=== PATIENT | female | born 1935 | race Caucasian/White ===

== ENCOUNTER 2021-08-19 14:16 | Outpatient (CLI) | payer MEDICARE, SELFPAY ==
--- NOTE | ~2021-08-19 | XR_ITS ---
XR shoulder RT min 2V DATE: 08/19/2021 15:26 INDICATION: Bilateral shoulder pain, right shoulder mass TECHNIQUE: 5 views COMPARISON: None FINDINGS: There is diffuse osteopenia. There is severe degenerative disc disease at the included C5-6 and C6-7 levels. There is prominent degenerative spurring at the right acromioclavicular joint. There is severe osteoarthritis of the right glenohumeral joint and prominent rotator cuff atrophy, wi th the humeral head abutting the undersurface of the acromion process. No fracture or dislocation, periosteal reaction or bone destruction is detected. IMPRESSION: Osteopenia Severe degenerative disc disease at C5-6 and C6-7 Severe degenerative changes of the right acromioclavicular and glenohumeral joints Prominent chronic right rotator cuff atrophy Reviewed, dictated and finalized at location A. IMPRESSION: Osteopenia Severe degenerative disc disease at C5-6 and C6-7 Severe degenerative changes of the right acromioclavicular and glenohumeral nydia nts Prominent chronic right rotator cuff atrophy
--- NOTE | ~2021-08-19 | XR_ITS ---
XR shoulder LT min 2V DATE: 08/19/2021 15:27 INDICATION: Bilateral shoulder pain TECHNIQUE: 5 views of left shoulder COMPARISON: None FINDINGS: There is prominent degenerative spurring at the left acromion clavicular joint. There is severe osteoarthritic change at the glenohumeral joint. There is chronic severe left rotator cuff atrophy. There is diffuse osteopenia otherwise. No fracture, dislocation, periosteal reaction or bone destruction or abnormal soft tissue calcificati on is detected. Severe degenerative disc disease at C5-6 and C6-7. Degenerative spurring of the thoracic spine. IMPRESSION: Severe degenerative changes at the acromioclavicular and glenohumeral joints Severe chronic rotator cuff atrophy Diffuse osteopenia Severe degenerative disc disease at C5-6 and C6-7 Reviewed, dictated and finalized at location A. IMPRESSION: Severe degenerative changes at the acromioclavicular and glenohumer al joints Severe chronic rotator cuff atrophy Diffuse osteopenia Severe degenerative disc disease at C5-6 and C6-7
--- NOTE | ~2021-08-19 | XR_ITS ---
XR thoracic spine 3V DATE: 08/19/2021 15:27 INDICATION: T11 fracture follow-up TECHNIQUE: AP, lateral, swimmer views COMPARISON: None FINDINGS: Diffuse osteopenia. There is mild anterolisthesis at C3-4. There is moderate degenerative disc disease at C3-4 and C4-5 a nd severe degenerative disease at C5-6 and C6-7, with minimal retrolisthesis at the latter 2 levels. There is thoracolumbar dextroscoliosis. There is degenerative spurring, particularly in the mid and to a greater extent lower thoracic region . No thoracic spine fracture or dislocation or bone destruction is evident. The thoracic pedicles are i ntact. No paraspinal soft tissue thickening. IMPRESSION: Diffuse osteopenia Thoracolumbar dextro scoliosis Degenerative changes of the cervical and thoracic spine Reviewed, dictated and finalized at location A.
[2021-08-19 14:44] LABS: Basophils Absolute Auto 0.04 K/mm3 (0.00-0.10); Basophils Percent Auto 0.7 % (0.0-1.0); Eosinophils Absolute Auto 0.11 K/mm3 (0.02-0.50); Eosinophils Percent Auto 1.9 % (1.0-6.0); Hematocrit 39.6 % (35.0-42.0); Hemoglobin 13.2 g/dL (11.7-13.8); Immature Granulocyte Absolute 0.02 K/mm3 (0.00-0.00); Immature Granulocyte Percent A 0.4 % (0.0-0.0); Lymphocytes Absolute Auto 1.78 K/mm3 (1.10-4.50); Lymphocytes Percent Auto 31.3 % (18.0-42.0); Mean Corpuscular HGB Conc 33.3 g/dL (32.0-36.0); Mean Corpuscular Hemoglobin 33.4 pg (27.0-31.0); Mean Corpuscular Volume 100.3 fL (78.0-102.0); Monocytes Absolute Auto 0.62 K/mm3 (0.10-0.90); Monocytes Percent Auto 10.9 % (2.0-11.0); Neutrophils Absolute Auto 3.1 K/mm3 (1.7-7.2); Neutrophils Percent Auto 54.8 % (50.0-70.0); Platelet Count Result 213 K/mm3 (150-420); Red Blood Count 3.95 M/mm3 (4.20-5.40); Red Cell Distribution Width 13.1 % (11.6-14.4); White Blood Count 5.7 K/mm3 (4.8-10.8)
[2021-08-19 15:53] LABS: Alanine Aminotransferase 54 U/L (14-59); Albumin Level 4.5 g/dL (3.4-5.0); Alkaline Phosphatase 42 U/L (46-116); Anion Gap 11 mmol/L (8-16); Aspartate Amino Transferase 31 U/L (15-37); Bilirubin,Total 0.3 mg/dL (0.00-1.00); Blood Urea Nitrogen 18 mg/dL (7-18); CRP < 0.5 mg/dL (0.0-0.9); Carbon Dioxide 27 mmol/L (21-32); Chloride 104 mmol/L (98-108); Estimated Glomerular Filt Rate > 60; Glucose 98 mg/dL (70-99); Osmolality Calculated 295 mOsm/kg (285-295); Sodium 142 mmol/L (136-145); Total Protein 7.8 g/dL (6.4-8.2)
== END 2021-08-19 14:17 | disposition home or self-care (01) ==
PROVIDERS: PCP Internal Medicine; Visit Provider Internal Medicine
DX: M25.512 Pain in left shoulder (principal); M25.511 Pain in right shoulder; M85.80 Other specified disorders of bone density and structure, unspecified site; M50.322 Other cervical disc degeneration at C5-C6 level; M50.323 Other cervical disc degeneration at C6-C7 level
CPT/HCPCS: 36415; 72072; 73030; 80053; 85025; 86140

== ENCOUNTER 2021-09-27 16:01 | Outpatient (CLI) | payer MEDICARE, SELFPAY ==
[2021-09-27 16:18] LABS: Basophils Absolute Auto 0.02 K/mm3 (0.00-0.10); Basophils Percent Auto 0.5 % (0.0-1.0); Eosinophils Absolute Auto 0.11 K/mm3 (0.02-0.50); Eosinophils Percent Auto 2.5 % (1.0-6.0); Hematocrit 36.8 % (35.0-42.0); Hemoglobin 12.7 g/dL (11.7-13.8); Immature Granulocyte Absolute 0.02 K/mm3 (0.00-0.00); Immature Granulocyte Percent A 0.5 % (0.0-0.0); Lymphocytes Absolute Auto 1.37 K/mm3 (1.10-4.50); Lymphocytes Percent Auto 31.1 % (18.0-42.0); Mean Corpuscular HGB Conc 34.5 g/dL (32.0-36.0); Mean Corpuscular Hemoglobin 34.8 pg (27.0-31.0); Mean Corpuscular Volume 100.8 fL (78.0-102.0); Mean Platelet Volume 9.1 fl (9.2-11.8); Monocytes Absolute Auto 0.61 K/mm3 (0.10-0.90); Monocytes Percent Auto 13.8 % (2.0-11.0); Neutrophils Absolute Auto 2.3 K/mm3 (1.7-7.2); Neutrophils Percent Auto 51.6 % (50.0-70.0); Platelet Count Result 214 K/mm3 (150-420); Red Blood Count 3.65 M/mm3 (4.20-5.40); Red Cell Distribution Width 13.2 % (11.6-14.4); White Blood Count 4.4 K/mm3 (4.8-10.8)
[2021-09-27 16:19] LABS: Add Urine Microscopic? YES; Appearance Urine Clear (Clear); Bilirubin Urine Negative (Negative); Blood Urine Negative (Negative); Color Urine Light Yellow (Yellow); Glucose Urine UA Negative (Negative); Ketones Urine Trace (Negative); Leukocyte Esterase Ur Trace (Negative); Nitrate Urine Negative (Negative); Protein Urine Negative (Negative); Urobilinogen Urine 0.2 mg/dL (0.2-1.0); pH Urine 6.5 (5.0-8.0)
[2021-09-27 16:27] LABS: Bacteria Urine 1+ /hpf; RBC Urine None seen /hpf (0-2); Squamous Epithelial Cell Urine Few /hpf (Few); WBC Urine 0-3 /hpf (0-3)
[2021-09-27 16:49] LABS: Alanine Aminotransferase 49 U/L (14-59); Albumin Level 4.1 g/dL (3.4-5.0); Alkaline Phosphatase 44 U/L (46-116); Anion Gap 11 mmol/L (8-16); Aspartate Amino Transferase 26 U/L (15-37); Bilirubin,Total 0.3 mg/dL (0.00-1.00); Blood Urea Nitrogen 22 mg/dL (7-18); Calcium 9.9 mg/dL (8.5-10.1); Carbon Dioxide 28 mmol/L (21-32); Chloride 99 mmol/L (98-108); Estimated Glomerular Filt Rate > 60; Glucose 115 mg/dL (70-99); Osmolality Calculated 290 mOsm/kg (285-295); Potassium 4.6 mmol/L (3.5-5.1); Sodium 138 mmol/L (136-145); Total Protein 7.4 g/dL (6.4-8.2)
== END 2021-09-27 16:02 | disposition home or self-care (01) ==
LOC: CHSLAB 16:04
PROVIDERS: PCP Internal Medicine; Visit Provider Internal Medicine
DX: R10.32 Left lower quadrant pain (principal)
CPT/HCPCS: 36415; 80053; 81001; 85025; 87086; 87088

== ENCOUNTER 2021-10-07 14:21 | Outpatient (CLI) | payer MEDICARE, SELFPAY ==
[2021-10-07 14:53] LABS: Estimated Glomerular Filt Rate > 60
== END 2021-10-07 14:22 | disposition home or self-care (01) ==
PROVIDERS: PCP Internal Medicine; Visit Provider Internal Medicine
DX: R10.32 Left lower quadrant pain (principal)
CPT/HCPCS: 99199

== ENCOUNTER 2021-10-18 13:19 | Outpatient (CLI) | payer MEDICARE, SELFPAY ==
--- NOTE | ~2021-10-18 | CT_ITS ---
EXAMINATION: CT abdomen pelvis w con DATE: 10/18/2021 14:57 INDICATION: Left lower quadrant abdominal pain and swelling. Vaginal cancer status post radiation the rapy. TECHNIQUE: Computed tomography (CT) of the abdomen and pelvis was performed with 100 mL Omnipaque 350 intravenous contrast. Automated exposure control and iterative reconstruction technique were employe d. The dose-length product was 820.81 mGy-cm. COMPARISON: None. FINDINGS: The visualized portions of the lung bases demonstrate mild atelectasis and mild chronic jessi g disease. No pleural effusion. The heart size is normal. No pericardial effusion. The liver is melissa l. There are changes of cholecystectomy. The spleen, pancreas, adrenal glands, and right kidney are n ormal. There is a 3 mm cyst in left kidney. There is diverticulosis of the colon without evidence of diverticulitis. There are no dilated loops of bowel. The appendix is not visualized. There are no pat hologically enlarged lymph nodes. There is no free intraperitoneal fluid. There is a total right hip arthroplasty. There is severe lumbar spondylosis. IMPRESSION: 1. No etiology for the patient's symptoms. Reviewed, dictated and finalized at location A. [employer]
== END 2021-10-18 13:20 | disposition home or self-care (01) ==
PROVIDERS: PCP Internal Medicine; Visit Provider Internal Medicine
DX: R10.32 Left lower quadrant pain (principal); Z85.89 Personal history of malignant neoplasm of other organs and systems
CPT/HCPCS: 74177; Q9967

== ENCOUNTER 2022-03-14 12:14 | Outpatient (CLI) | payer MEDICARE, SELFPAY ==
--- NOTE | ~2022-03-14 | XR_ITS ---
XR chest 2V DATE: 03/14/2022 13:28 INDICATION: Preoperative evaluation. History of cervical cancer. TECHNIQUE: 2 views COMPARISON: None FINDINGS: Cardiomegaly. No pulmonary vascular congestion or pleural effusion or pneumothorax. No hilar or mediastinal enlarge ment is evident. Bilateral subcentimeter pulmonary nodules are noted. CT thorax is recommended in the absence of any p rior chest radiographs for comparison. 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 Osteoarthritic change at the glenohumeral joints and bilateral chronic rotator cuff atrophy. Diffuse osteopenia. Degenerative spurring of the thoracic and lumbar spine. Status post cholecystectomy. IMPRESSION: Bilateral subcentimeter pulmonary nodules; CT thorax is recommended unless prior radiogra phs are available for comparison Cardiac megaly Eventration of right diaphragm Reviewed, dictated and finalized at location A. IMPRESSION: Bilateral subcentimeter pulmonary nodules; CT thorax is recommended unless prior radiographs are available for comparison Cardiac megaly Eventration of right diaphragm
== END 2022-03-14 12:15 | disposition home or self-care (01) ==
LOC: CHSLAB 12:17 → CHSIMG 12:29
PROVIDERS: PCP Internal Medicine; Visit Provider Internal Medicine
DX: Z01.818 Encounter for other preprocedural examination (principal); N39.0 Urinary tract infection, site not specified
CPT/HCPCS: 71046

== ENCOUNTER 2022-03-18 12:46 | Outpatient (CLI) | payer MEDICARE, SELFPAY ==
[2022-03-18 13:13] LABS: Estimated Glomerular Filt Rate > 60
== END 2022-03-18 12:47 | disposition home or self-care (01) ==
LOC: CHSIMG 12:47
PROVIDERS: PCP Internal Medicine; Visit Provider Internal Medicine
DX: R91.1 Solitary pulmonary nodule (principal)
CPT/HCPCS: 99199

== ENCOUNTER 2022-03-21 15:57 | Outpatient (CLI) | payer MEDICARE, SELFPAY ==
--- NOTE | ~2022-03-21 | CT_ITS ---
EXAMINATION:CT diagnostic chest w con DATE: 03/21/2022 16:37 INDICATION: Pulmonary nodules. TECHNIQUE: Computed tomography (CT) of the chest was performed with 75 mL Omnipaque 350 intravenous c ontrast. Automated exposure control and iterative reconstruction technique were employed. The dose-le ngth product (DLP) was 465.15 mGy-cm. COMPARISON: CT abdomen and pelvis 10/18/2021, chest 2 views 03/14/22 FINDINGS: There is eventration of anterior right hemidiaphragm. There are calcified pleural plaques b ilaterally, which may be seen with asbestosis exposure. There are mild peripheral groundglass opaciti es and septal thickening in the lungs with a lower lung predominance, consistent with asbestosis. No bronchiectasis or honeycombing. No pleural effusion. The heart size is normal. No pericardial effusio n. There are changes of cholecystectomy. IMPRESSION: 1. Calcified pleural plaques correlating with the chest radiograph abnormalities, which may be seen w ith asbestosis exposure. 2. Mild chronic interstitial lung disease (asbestosis). Reviewed, dictated and finalized at location A. IMPRESSION: 1. Calcified pleural plaques correlating with the chest radiograph abnormalitie s, which may be seen with asbestosis exposure. 2. Mild chronic interstitial lung disease (asbestosis).
== END 2022-03-21 15:58 | disposition home or self-care (01) ==
LOC: CHSIMG 15:58
PROVIDERS: PCP Internal Medicine; Visit Provider Internal Medicine
DX: R91.1 Solitary pulmonary nodule (principal)
CPT/HCPCS: 71260; Q9967

== ENCOUNTER 2022-06-11 13:59 | Outpatient (CLI) | payer OTHER, MEDICARE, SELFPAY ==
--- NOTE | ~2022-06-11 | XR_ITS ---
XR_[id number]_CR 06/11/2022 14:27 Indication: Neck pain Procedure: 3 views of the cervical spine Comparison: No prior studies for comparison. Findings: There is reversal of cervical lordosis. There is degenerative anterolisthesis at C3-4, C4-5 and retrolisthesis at C5-6. There is severe multilevel uncinate and facet hypertrophy. No prevertebr al soft tissue swelling. Odontoid process is normal. Lung apices are unremarkable. No fracture or tra umatic malalignment. Impression: 1: Severe cervical spondylosis. Reviewed, dictated and finalized at location A. Impression: 1: Severe cervical spondylosis.
--- NOTE | ~2022-06-11 | XR_ITS ---
EXAM: XR lumbar spine 2-3V DATE: 06/11/2022 18:38 HISTORY: BACK PAIN . COMPARISON: None available. FINDINGS: 5 nonrib-bearing lumbar-type vertebral bodies. Pedicles intact. Mild lumbar scoliosis. Exa ggerated lumbar lordosis. Vertebral body heights maintained. CT abdomen pelvis 10/18/2021 3 mm retroli sthesis of L1 on L2. 3 mm anterolisthesis of L3 on L4. 5 mm anterolistheses at L4-5 and L5-S1. Multil evel disc space narrowing and marginal osteophytosis, with vacuum phenomenon at all lumbar levels. Se sharona facet sclerosis and hypertrophy in the lower lumbar spine. Aortic calcification without evident aneurysm. Partially visualized right hip arthroplasty. IMPRESSION: Multilevel severe degenerative disc disease and facet arthropathy. Multilevel grade 1 lis theses, described above. Reviewed, dictated and finalized at location K. IMPRESSION: Multilevel severe degenerative disc disease and facet arthropathy. Multilevel grade 1 listheses, described above.
--- NOTE | ~2022-06-11 | XR_ITS ---
EXAM: XR thoracic spine 3V DATE: 06/11/2022 18:38 HISTORY: BACK PAIN . COMPARISON: 08/19/2021. FINDINGS: Mild thoracic scoliosis. Cholecystomy clips. Multilevel severe marginal osteophytosis in t he mid and lower thoracic spine. Mild osteoporotic type concave endplate deformities in the upper tho racic spine. Decreased mineralization. Partially visualized shoulder arthroplasty. IMPRESSION: Multilevel severe degenerative disc disease. Osteoporosis. No significant interval change . Reviewed, dictated and finalized at location K. IMPRESSION: Multilevel severe degenerative disc disease. Osteoporosis. No signi ficant interval change.
== END 2022-06-11 14:00 | disposition home or self-care (01) ==
PROVIDERS: PCP Internal Medicine; Visit Provider Internal Medicine
DX: M54.9 Dorsalgia, unspecified (principal); M54.2 Cervicalgia
CPT/HCPCS: 72040; 72072; 72100

== ENCOUNTER 2022-07-01 13:30 | Outpatient (CLI) | payer MEDICARE, SELFPAY | END 2022-07-01 13:31 | disposition home or self-care (01) | PROVIDERS: PCP Internal Medicine; Visit Provider Internal Medicine | DX: M81.0 Age-related osteoporosis without current pathological fracture (principal) | CPT/HCPCS: 99199 ==